=== PATIENT | female | born 1985 | race African-American/Black ===

== ENCOUNTER 2018-12-07 08:27 | Outpatient (CLI) | payer BC ==
--- NOTE | 2018-12-07 10:19 | ULT ---
ULTRASOUND ABDOMEN COMPLETE: INDICATIONS: Generalized abdominal pain. TECHNIQUE: Freeman-scale ultrasound evaluation of the liver, gallbladder, spleen, pancreas, common bile duct, kidne ys, abdominal aorta, and inferior vena cava (IVC). FINDINGS: The imaged aspects of the pancreas are unremarkable. No focal hepatic lesion. The gallbladder is un remarkable. No abnormal biliary ductal dilatation nor ascites. Portions of the spleen are obscured by persistent shadowing but are otherwise grossly unremarkable. No overt hydronephrosis of either ki dney. No ascites. The imaged aorta is nonaneurysmal. IMPRESSION: No acute abnormality of the abdomen identified, sonographically. POS: [facility]
--- NOTE | 2018-12-07 10:20 | RAD ---
RIGHT HIP TWO VIEWS: HISTORY: Pain. COMPARISON: None. FINDINGS: The contour of the femoral head is maintained. The hip joint space is preserved. No fracture. Inci dental intrauterine device is noted. IMPRESSION: Unremarkable two views right hip. POS: [facility]
--- NOTE | 2018-12-07 10:21 | RAD ---
LEFT HIP TWO VIEWS: HISTORY: Pain. COMPARISON: None. FINDINGS: The contour of the femoral head is maintained. Joint spaces are preserved. No fracture or dislocati on. Incidental intrauterine device. IMPRESSION: Unremarkable left hip two views. POS: [facility]
--- NOTE | 2018-12-07 10:42 | ULT ---
PELVIC SONOGRAM: HISTORY: Pelvic pain. TECHNIQUE: Transabdominal and transvaginal imaging with duplex evaluation. FINDINGS: The urinary bladder is decompressed. The uterus is retroverted with a heterogeneous echotexture. It measures up to 6.5 cm. Echogenic bar with shadowing in the endometrial cavity is consistent with an intrauterine contraceptive device. The endometrium is 0.4 cm. There is a physiologic amount of free fluid within the cul-de-sac and adnexae. The right ovary is 3. 6 cm and the left is 3 cm. Each contains follicles and demonstrates good color and spectral Doppler flow. IMPRESSION: 1. Retroverted uterus. 2. Intrauterine contraceptive device. 3. No significant abnormalities are demonstrated. POS: [facility]
== END 2018-12-07 08:28 | disposition home or self-care (01) ==
LOC: SCSULT 08:27
PROVIDERS: ATTEND Family Medicine
DX: R10.84 Generalized abdominal pain (principal); M25.551 Pain in right hip; M25.552 Pain in left hip; Z96.0 Presence of urogenital implants
CPT/HCPCS: 76700; 76856